=== PATIENT | female | born 1995 | race Caucasian/White ===

== ENCOUNTER 2016-07-31 13:10 | Inpatient (IN) | payer OTHER ==
[2016-07-31 15:13] VITALS: BMI 33.6
--- NOTE | 2016-07-31 16:56 | HP ---
COWS - Scale Resting Pulse: 0= [place] 80 or Below Sweatin=Flushed/Facial Moisture Restless Observation: 1= Difficult to Sit Still Pupil Size: 1= Pupils >than Normal Bone or Joint Aches: 2= Severe Diffuse Aches Runny Nose/ Eye Tearin= Runny Nose/Eyes GI Upset > 30mins: 1= Stomach Cramp Tremor Observation: 1= Tremor [place], Not Seen Yawning Observation: 0= None Anxiety or Irritability: 2=Irritable/Anxious Goose Flesh Skin: 0=Smooth Skin COWS Score: 12 Admission ROS BHS - HPI Chief Complaint: i n eed help to stop using percocet and cannabis Allergies/Adverse Reactions: Allergies Allergy/AdvReac Type Severity Reaction Status Date / Time No Known Allergies Allergy Verified 07/31/16 15:23 History of Present Illness: 21 y/o f pt with h/o percocet and cannabis seeking detox. Exam Limitations: No Limitations - Ebola screening Have you traveled outside of the country in the last 21 days: No Have you had contact with anyone from an Ebola affected area: No Have you been sick,other than usual withdrawal symptoms: No Do you have a fever: No - Review of Systems Constitutional: Night Sweats, Changes in sleep EENT: reports: Tearing Respiratory: reports: No Symptoms reported Cardiac: reports: No Symptoms Reported GI: reports: Nausea, Vomiting, Abdominal cramping : reports: No Symptoms Reported Musculoskeletal: reports: Back Pain, Muscle Pain Integumentary: reports: No Symptoms Reported Neuro: reports: Headache Endocrine: reports: No Symptoms Reported Hematology: reports: No Symptoms Reported Psychiatric: reports: Depressed Other Systems: Reviewed and Negative Patient History - Patient Medical History Hx Anemia: Yes Hx Asthma: No Hx Chronic Obstructive Pulmonary Disease (COPD): No Hx Cancer: No Hx Cardiac Disorders: No Hx Congestive Heart Failure: No Hx Hypertension: No Hx Hypercholesterolemia: No Hx Pacemaker: No HX Cerebrovascular Accident: No Hx Seizures: No Hx Dementia: No Hx Diabetes: No Hx Gastrointestinal Disorders: No Hx Liver Disease: No Hx Genitourinary Disorders: No Hx Sexually Transmitted Disorders: No Hx Renal Disease (ESRD): No Hx Thyroid Disease: No Hx Human Immunodeficiency Virus (HIV): No Hx Hepatitis C: No Hx Depression: Yes Hx Suicide Attempt: Yes (tired to choke herself with a belt x 2 ) Hx Bipolar Disorder: No Hx Schizophrenia: No - Patient Surgical History Past Surgical History: Yes Hx Abdominal Surgery: Yes (ovarian cyst-2015) Hx Section: Yes (x 2) - PPD History Previous Implant?: Yes Documented Results: Negative w/o proof Implanted On Prior [facility] Admission?: No PPD to be Administered?: Yes - Reproductive History Patient is a Female of Child Bearing Age (11 -55 yrs old): Yes Last Menstrual Period: 07/27/16 Patient : No - Smoking Cessation Smoking history: Current every day smoker Have you smoked in the past 12 months: No Aproximately how many cigarettes per day: 6 Cigars Per Day: 0 Hx Chewing Tobacco Use: No Initiated information on smoking cessation: Yes 'Breaking Loose' booklet given: 07/31/16 - Substance & Tx. History Hx Alcohol Use: No Hx Substance Use: Yes Substance Use Type: Marijuana, Opiates - Substances Abused Marijuana/Hashish Route: Smoking Frequency: Daily Amount used: $10 Age of first use: 8 Date of Last Use: 07/31/16 percocet Route: Oral Frequency: Daily Amount used: 5 pills Age of first use: 16 Date of Last Use: 07/31/16 Family Disease History - Family Disease History Family Disease History: Diabetes: Father, Mother Admission Physical Exam S - Vital Signs Vital Signs: Vital Signs - 24 hr 07/31/16 14:55 Temperature 97.2 F L Pulse Rate 75 Respiratory 20 Rate Blood Pressure 127/67 - Physical General Appearance: Yes: Appropriately Dressed, Obese, Irritable, Anxious HEENTM: Yes: EOMI, Hearing grossly Normal, Normocephalic, Normal Voice, [place], Rhinorrhea Respiratory: Yes: Chest Non-Tender, Lungs Clear, Normal Breath Sounds, No Respiratory Distress Neck: Yes: Supple, Trachea in good position Breast: Yes: Breast Exam Deferred Cardiology: Yes: Regular Rhythm, Regular Rate, S1, S2 Abdominal: Yes: Non Tender, Flat, Soft, Increased Bowel Sounds Genitourinary: Yes: Frequency Back: Yes: Decreased Range of Motion Musculoskeletal: Yes: Back pain Extremities: Yes: Tremors Neurological: Yes: housekeeping assistant II-XII NML intact, Fully Oriented, Alert, Motor Strength 5/5, Normal Response Integumentary: Yes: Moist Lymphatic: Yes: Within Normal Limits - Diagnostic (1) Opioid dependence Current Visit: Yes Status: Chronic Qualifiers: Substance use status: uncomplicated Qualified Code(s): F11.20 - Opioid dependence, uncomplicated (2) Obesity Current Visit: Yes Status: Chronic Qualifiers: Obesity severity: unspecified obesity severity (3) Cannabis abuse Current Visit: Yes Status: Chronic (4) Nicotine dependence Current Visit: Yes Status: Chronic Qualifiers: Nicotine product type: cigarettes Substance use status: uncomplicated Qualified Code(s): F17.210 - Nicotine dependence, cigarettes, uncomplicated Cleared for Admission S - Detox or Rehab [facility] Level of Care: Medically Managed Detox Regimen/Protocol: Methadone [facility] Breath Alcohol Content Breath Alcohol Content: 0 Urine Pregancy Test - Result Urine Test Results: Negative- NO Line Present Urine Drug Screen - Results Drug Screen Negative: No Urine Drug Screen Results: THC-Marijuana, CASA-Cocaine, OPI-Opiates, OXY- Oxycodone
[2016-07-31] MEDS ORDERED: MAGNESIUM CITRATE 300 ML BOTTLE PO PRN (17:10)
[2016-07-31] MEDS ORDERED: MENTHOL/PHENOL 1 EACH UD MM PRN (17:10)
[2016-07-31] MEDS ORDERED: LOPERAMIDE HCL 2 MG CAPSULE PO PRN (17:10)
[2016-07-31] MEDS ORDERED: NICOTINE POLACRILEX 2 MG GUM BC PRN (17:10)
[2016-07-31] MEDS ORDERED: MAGNESIUM HYDROX 2400MG/30ML ORAL SUSPENSION 30 ML CUP PO PRN (17:10)
[2016-07-31] MEDS ORDERED: MAG HYDROX/AL HYDROX/SIMETH 30 ML UNIT-DOSE CUP PO PRN (17:10)
[2016-07-31] MEDS ORDERED: guaiFENesin/D-METHORPHAN HB 10 ML UNIT-DOSE CUPS PO PRN (17:10)
[2016-07-31] MEDS ORDERED: P-EPHED 60MG/TRIPROLIDI 2.5MG TABLET PO PRN (17:10)
[2016-07-31] MEDS ORDERED: METHADONE HCL 10 MG TABLET (FOR DETOX USE ONLY) PO ONE ×2 (17:45→23:00)
[2016-07-31] MEDS: diazePAM 5 MG TABLET PO PRN ×2 (18:04→22:17)
[2016-07-31] MEDS: THIAMINE HCL 100 MG TABLET (FP) PO SCH (22:17)
[2016-07-31 23:23] LABS: URINE APPEARANCE CLOUDY; URINE BILIRUBIN NEGATIVE (NEGATIVE); URINE COLOR YELLOW; URINE GLUCOSE (UA) NEGATIVE (NEGATIVE); URINE KETONE NEGATIVE (NEGATIVE); URINE NITRITE NEGATIVE (NEGATIVE); URINE UROBILINOGEN NEGATIVE E.U./dl (0.2-1.0)
[2016-07-31 23:26] LABS: URINE BLOOD 3+ (NEGATIVE); URINE LEUK ESTERASE 1+ (NEGATIVE); URINE PROTEIN 1+ (NEGATIVE)
[2016-07-31 23:28] LABS: URINE MUCUS RARE; URINE RBC 9 /hpf (0-3); URINE WBC 17 /hpf (3-5)
[2016-08-01] MEDS: ACETAMINOPHEN 325 MG TABLET (FP) PO PRN ×2 (08:44→20:22)
[2016-08-01] MEDS ORDERED: ONDANSETRON *ODT* 4 MG TABLET SL PRN (08:47)
--- NOTE | 2016-08-01 09:05 | CONSULT ---
[facility] Psychiatric Consult - Data Date of interview: 08/01/16 Admission source: [facility] Identifying data: This is 21 years old female with nom psychiatric hosapitalization history intoxicated with: Opioids, Cannabis and Nicotine Substance Abuse History: - Smoking Cessation. Smoking history: Current every day smoker. Have you smoked in the past 12 months: No. Aproximately how many cigarettes per day: 6. Cigars Per Day: 0. Hx Chewing Tobacco Use: No. Initiated information on smoking cessation: Yes. 'Breaking Loose' booklet given : 07/31/16. - Substance & Tx. History. Hx Alcohol Use: No. Hx Substance Use: Yes. Substance Use Type: Marijuana, Opiates. - Substances Abused. Marijuana/Hashish. Route: Smoking. Frequency: Daily. Amount used: $10. Age of first use: 8. Date of Last Use: 07/31/16. percocet. Route: Oral. Frequency: Daily. Amount used: 5 pills. Age of first use: 16. Date of Last Use: Medical History: Obesity Psychiatric History: Patient reports history of de[ression, reprots no medications takijng prior to admsosion Physical/Sexual Abuse/Trauma History: Denies Additional Comment: Observation. Detox Unit Care Protocol Mental Status Exam - Mental Status Exam Alert and Oriented to: Person Cognitive Function: Fair Patient Appearance: Unkempt Mood: Apprehensive Affect: Mood Congruent Patient Behavior: Cooperative Speech Pattern: Delayed Voice Loudness: Mildly Soft/Quiet Thought Process: Goal Oriented Thought Disorder: Being Controlled Hallucinations: Denies Suicidal Ideation: Denies Homicidal Ideation: Denies Insight/Judgement: Fair Sleep: Difficulty falling asleep Appetite: Weight gain Muscle strength/Tone: Normal Gait/Station: Normal Additional Comments: Observation. Detox Unit Care Protocol Psychiatric Findings - Problem List ([place] 1, 2,3) (1) Cannabis abuse Current Visit: Yes Status: Chronic (2) Nicotine dependence Current Visit: Yes Status: Chronic Qualifiers: Nicotine product type: cigarettes Substance use status: uncomplicated Qualified Code(s): F17.210 - Nicotine dependence, cigarettes, uncomplicated (3) Opioid dependence Current Visit: Yes Status: Chronic Qualifiers: Substance use status: uncomplicated Qualified Code(s): F11.20 - Opioid dependence, uncomplicated (4) Drug-induced mood disorder Current Visit: Yes Status: Suspected - Initial Treatment Plan Initial Treatment Plan: Observation. Detox Unit Care Protocol
[2016-08-01] MEDS ORDERED: METHADONE HCL 10 MG TABLET (FOR DETOX USE ONLY) PO ONE (10:00)
[2016-08-01 10:16] LABS: MCH 27.7 pg (25.7-33.7); MCHC 32.3 g/dl (32.0-36.0); MEAN PLT VOLUME 12.1 fl (7.5-11.1); PLATELET COUNT 179 K/MM3 (134-434); RDW 14.3 % (11.6-15.6); WHITE BLOOD COUNT 8.3 K/mm3 (4.0-10.0)
[2016-08-01] MEDS: diazePAM 5 MG TABLET PO PRN ×2 (10:26→22:21)
[2016-08-01] MEDS: hydrOXYzine PAMOATE 25 MG CAPSULE (FP) PO PRN (10:26)
[2016-08-01] MEDS: PRENATAL VITAMINS W/ FOLIC ACID TABLET (FP) PO SCH (10:26)
[2016-08-01] MEDS: NICOTINE 7 MG/24 HOURS TOPICAL PATCH TD SCH (10:27)
[2016-08-01 10:33] LABS: ALBUMIN 3.5 g/dl (3.4-5.0); ALK PHOS 80 U/L (45-117); ANION GAP 11 (8-16); BILIRUBIN,TOTAL 0.3 mg/dL (0.2-1.0); CALCIUM 8.5 mg/dL (8.5-10.1); CO2 25 mmol/L (21-32); CREATININE 0.7 mg/dL (0.55-1.02); GLUCOSE,RANDOM 94 mg/dL (74-106); SGOT/AST 14 U/L (15-37); SGPT/ALT 19 U/L (12-78); TOT PROT 6.4 g/dl (6.4-8.2)
--- NOTE | 2016-08-01 11:07 | PN ---
S CIWA - CIWA Score Nausea/Vomitin S COWS - Scale Resting Pulse: 0= [place] 80 or Below Sweatin=Flushed/Facial Moisture Restless Observation: 1= Difficult to Sit Still Pupil Size: 1= Pupils >than Normal Bone or Joint Aches: 1= Mild Discomfort Runny Nose/ Eye Tearin= Nasal Congestion GI Upset > 30mins: 1= Stomach Cramp Tremor Observation of Outstretched Hands: 1= Tremor [place], Not Seen Yawning Observation: 0= None Anxiety or Irritability: 1=Feels Anxious/Irritable Goose Flesh Skin: 0=Smooth Skin COWS Score: 9 S Progress Note (SOAP) Subjective: feeling better, but interrupted sleep, sweats Objective: 08/01/16 11:05 Vital Signs Temperature 98.1 F 08/01/16 06:00 Pulse Rate 87 08/01/16 10:43 Respiratory Rate 18 08/01/16 10:43 Blood Pressure 138/92 08/01/16 10:43 O2 Sat by Pulse Oximetry (%) Laboratory Tests 07/31/16 08/01/16 08/01/16 23:00 06:00 06:00 WBC 8.3 RBC 4.35 Hgb 12.1 Hct 37.4 MCV 86.0 MCHC 32.3 RDW 14.3 Plt Count 179 MPV 12.1 H Sodium 142 Potassium 4.0 Chloride 106 Carbon Dioxide 25 Anion Gap 11 BUN 10 Creatinine 0.7 Creat Clearance w eGFR > 60 Random Glucose 94 Calcium 8.5 Total Bilirubin 0.3 AST 14 L ALT 19 Alkaline Phosphatase 80 Total Protein 6.4 Albumin 3.5 Urine Color Yellow Urine Appearance Cloudy Urine pH 6.0 Urine Protein 1+ H Urine Glucose (UA) Negative Urine Ketones Negative Urine Blood 3+ H Urine Nitrite Negative Urine Bilirubin Negative Urine Urobilinogen Negative Ur Leukocyte Esterase 1+ H Urine RBC 9 Urine WBC 17 Ur Epithelial Cells Many Urine Mucus Rare pt aox3 in nad ambulating Assessment: 08/01/16 11:06 withdrawal sx's Plan: cont. detox increase fluids
[2016-08-01 12:25] LABS: HIV 1 & 2 AB NEGATIVE; HIV 1 AGp24 NEGATIVE
--- NOTE | 2016-08-01 13:21 | EKG ---
Test Reason : Blood Pressure : / mmHG Vent. Rate : 072 BPM Atrial Rate : 072 BPM P-R Int : 126 ms QRS Dur : 088 ms QT Int : 412 ms P-R-T Axes : 062 064 053 degrees QTc Int : 451 ms NORMAL SINUS RHYTHM WITH SINUS ARRHYTHMIA POSSIBLE LEFT ATRIAL ENLARGEMENT BORDERLINE ECG NO PREVIOUS ECGS AVAILABLE Confirmed by ISELA ORTIZ MD ([id number]) on 08/01/2016 1:21:23 PM Referred By: Confirmed By:ISELA ORTIZ MD
[2016-08-01] MEDS: THIAMINE HCL 100 MG TABLET (FP) PO SCH (22:18)
[2016-08-01] MEDS: diphenhydrAMINE HCL 50 MG CAPSULE PO PRN (22:21)
[2016-08-02] MEDS: diazePAM 5 MG TABLET PO PRN ×4 (03:23→22:09)
[2016-08-02] MEDS ORDERED: TRIMETHOBENZAMIDE HCL 200MG/2ML INJ IM PRN (08:42)
--- NOTE | 2016-08-02 09:25 | PN ---
S COWS - Scale Resting Pulse: 0= [place] 80 or Below Sweatin= Chills/Flushing Restless Observation: 3= Extraneous Movement Pupil Size: 1= Pupils >than Normal Bone or Joint Aches: 2= Severe Diffuse Aches Runny Nose/ Eye Tearin= Runny Nose/Eyes GI Upset > 30mins: 3= Vomiting/Diarrhea Tremor Observation of Outstretched Hands: 2= Slight Tremor Visible Yawning Observation: 1= 1-2x During Session Anxiety or Irritability: 2=Irritable/Anxious Goose Flesh Skin: 0=Smooth Skin COWS Score: 17 S Progress Note (SOAP) Subjective: ALERT,IRRITABLE,ANXIOUS,INTERRUPTED SLEEP,TREMOR,HEADACHE,PAIN IN THE BODY AND BACK Objective: 08/02/16 09:24 Vital Signs Temperature 97.7 F 08/02/16 06:50 Pulse Rate 63 08/02/16 06:50 Respiratory Rate 16 08/02/16 06:50 Blood Pressure 105/67 08/02/16 06:50 O2 Sat by Pulse Oximetry (%) Laboratory Last Values WBC 8.3 K/mm3 (4.0-10.0) 08/01/16 06:00 RBC 4.35 M/mm3 (3.60-5.2) 08/01/16 06:00 Hgb 12.1 GM/dL (10.7-15.3) 08/01/16 06:00 Hct 37.4 % (32.4-45.2) 08/01/16 06:00 MCV 86.0 fl (80-96) 08/01/16 06:00 MCHC 32.3 g/dl (32.0-36.0) 08/01/16 06:00 RDW 14.3 % (11.6-15.6) 08/01/16 06:00 Plt Count 179 K/MM3 (134-434) 08/01/16 06:00 MPV 12.1 fl (7.5-11.1) H 08/01/16 06:00 Sodium 142 mmol/L (136-145) 08/01/16 06:00 Potassium 4.0 mmol/L (3.5-5.1) 08/01/16 06:00 Chloride 106 mmol/L (98-107) 08/01/16 06:00 Carbon Dioxide 25 mmol/L (21-32) 08/01/16 06:00 Anion Gap 11 (8-16) 08/01/16 06:00 BUN 10 mg/dL (7-18) 08/01/16 06:00 Creatinine 0.7 mg/dL (0.55-1.02) 08/01/16 06:00 Creat Clearance w eGFR > 60 (>60) 08/01/16 06:00 Random Glucose 94 mg/dL (74-106) 08/01/16 06:00 Calcium 8.5 mg/dL (8.5-10.1) 08/01/16 06:00 Total Bilirubin 0.3 mg/dL (0.2-1.0) 08/01/16 06:00 AST 14 U/L (15-37) L 08/01/16 06:00 ALT 19 U/L (12-78) 08/01/16 06:00 Alkaline Phosphatase 80 U/L (45-117) 08/01/16 06:00 Total Protein 6.4 g/dl (6.4-8.2) 08/01/16 06:00 Albumin 3.5 g/dl (3.4-5.0) 08/01/16 06:00 Urine Color Yellow 07/31/16 23:00 Urine Appearance Cloudy 07/31/16 23:00 Urine pH 6.0 (5.0-8.0) 07/31/16 23:00 Ur Specific [place] 1.015 (1.005-1.025) 07/31/16 23:00 Urine Protein 1+ (NEGATIVE) H 07/31/16 23:00 Urine Glucose (UA) Negative (NEGATIVE) 07/31/16 23:00 Urine Ketones Negative (NEGATIVE) 07/31/16 23:00 Urine Blood 3+ (NEGATIVE) H 07/31/16 23:00 Urine Nitrite Negative (NEGATIVE) 07/31/16 23:00 Urine Bilirubin Negative (NEGATIVE) 07/31/16 23:00 Urine Urobilinogen Negative E.U./dl (0.2-1.0) 07/31/16 23:00 Ur Leukocyte Esterase 1+ (NEGATIVE) H 07/31/16 23:00 Urine RBC 9 /hpf (0-3) 07/31/16 23:00 Urine WBC 17 /hpf (3-5) 07/31/16 23:00 Ur Epithelial Cells Many /hpf (FEW) 07/31/16 23:00 Urine Mucus Rare 07/31/16 23:00 RPR Titer Nonreactive (NONREACTIVE) 08/01/16 06:00 HIV 1&2 Antibody Screen Negative 07/31/16 06:00 HIV P24 Antigen Negative 07/31/16 06:00 Assessment: 08/02/16 09:24 WITHDRAWAL SYMPTOM Plan: CONTINUE DETOX,REPEAT UA
[2016-08-02] MEDS ORDERED: METHADONE HCL 5 MG TABLET (FOR DETOX USE ONLY) PO ONE (10:00)
[2016-08-02] MEDS: PRENATAL VITAMINS W/ FOLIC ACID TABLET (FP) PO SCH (11:02)
[2016-08-02] MEDS: hydrOXYzine PAMOATE 25 MG CAPSULE (FP) PO PRN (11:03)
[2016-08-02] MEDS: LIDOCAINE 5% TOPICAL PATCH TP SCH (11:05)
[2016-08-02] MEDS: NICOTINE 7 MG/24 HOURS TOPICAL PATCH TD SCH (11:11)
--- NOTE | 2016-08-02 12:52 | EKG ---
Test Reason : Blood Pressure : / mmHG Vent. Rate : 065 BPM Atrial Rate : 065 BPM P-R Int : 136 ms QRS Dur : 080 ms QT Int : 428 ms P-R-T Axes : 053 053 042 degrees QTc Int : 445 ms POOR DATA QUALITY, INTERPRETATION MAY BE ADVERSELY AFFECTED SINUS RHYTHM WITH MARKED SINUS ARRHYTHMIA OTHERWISE NORMAL ECG WHEN COMPARED WITH ECG OF 31-JUL-2016 16:53, NO SIGNIFICANT CHANGE WAS FOUND Confirmed by ESTHER RIVERS, LISBET ([id number]) on 08/02/2016 12:52:17 PM Referred By: Confirmed By:LISBET SANTANA MD
[2016-08-02] MEDS: TRIMETHOBENZAMIDE HCL 300 MG CAPSULE PO PRN (14:56)
[2016-08-02] MEDS: ACETAMINOPHEN 325 MG TABLET (FP) PO PRN ×2 (14:57→21:00)
[2016-08-02] MEDS: THIAMINE HCL 100 MG TABLET (FP) PO SCH (22:07)
[2016-08-02] MEDS: CYCLOBENZAPRINE HCL 10 MG TABLET (FP) PO PRN (22:09)
[2016-08-02] MEDS: diphenhydrAMINE HCL 50 MG CAPSULE PO PRN (23:18)
[2016-08-03] MEDS: hydrOXYzine PAMOATE 25 MG CAPSULE (FP) PO PRN ×3 (03:04→18:25)
[2016-08-03] MEDS: IBUPROFEN 400 MG TABLET (FP) PO PRN ×2 (03:04→13:01)
[2016-08-03] MEDS ORDERED: METHADONE HCL 10 MG TABLET (FOR DETOX USE ONLY) PO ONE (10:00)
[2016-08-03] MEDS ORDERED: METHADONE HCL 5 MG TABLET (FOR DETOX USE ONLY) PO ONE (10:00)
--- NOTE | 2016-08-03 10:09 | PN ---
S Progress Note (SOAP) Subjective: ALERT,IRRITABLE,ANXIOUS,INTERRUPTED SLEEP,PAIN IN THE BODY Objective: 08/03/16 10:07 Laboratory Last Values WBC 8.3 K/mm3 (4.0-10.0) 08/01/16 06:00 RBC 4.35 M/mm3 (3.60-5.2) 08/01/16 06:00 Hgb 12.1 GM/dL (10.7-15.3) 08/01/16 06:00 Hct 37.4 % (32.4-45.2) 08/01/16 06:00 MCV 86.0 fl (80-96) 08/01/16 06:00 MCHC 32.3 g/dl (32.0-36.0) 08/01/16 06:00 RDW 14.3 % (11.6-15.6) 08/01/16 06:00 Plt Count 179 K/MM3 (134-434) 08/01/16 06:00 MPV 12.1 fl (7.5-11.1) H 08/01/16 06:00 Sodium 142 mmol/L (136-145) 08/01/16 06:00 Potassium 4.0 mmol/L (3.5-5.1) 08/01/16 06:00 Chloride 106 mmol/L (98-107) 08/01/16 06:00 Carbon Dioxide 25 mmol/L (21-32) 08/01/16 06:00 Anion Gap 11 (8-16) 08/01/16 06:00 BUN 10 mg/dL (7-18) 08/01/16 06:00 Creatinine 0.7 mg/dL (0.55-1.02) 08/01/16 06:00 Creat Clearance w eGFR > 60 (>60) 08/01/16 06:00 Random Glucose 94 mg/dL (74-106) 08/01/16 06:00 Calcium 8.5 mg/dL (8.5-10.1) 08/01/16 06:00 Total Bilirubin 0.3 mg/dL (0.2-1.0) 08/01/16 06:00 AST 14 U/L (15-37) L 08/01/16 06:00 ALT 19 U/L (12-78) 08/01/16 06:00 Alkaline Phosphatase 80 U/L (45-117) 08/01/16 06:00 Total Protein 6.4 g/dl (6.4-8.2) 08/01/16 06:00 Albumin 3.5 g/dl (3.4-5.0) 08/01/16 06:00 Urine Color Yellow 07/31/16 23:00 Urine Appearance Cloudy 07/31/16 23:00 Urine pH 6.0 (5.0-8.0) 07/31/16 23:00 Ur Specific [place] 1.015 (1.005-1.025) 07/31/16 23:00 Urine Protein 1+ (NEGATIVE) H 07/31/16 23:00 Urine Glucose (UA) Negative (NEGATIVE) 07/31/16 23:00 Urine Ketones Negative (NEGATIVE) 07/31/16 23:00 Urine Blood 3+ (NEGATIVE) H 07/31/16 23:00 Urine Nitrite Negative (NEGATIVE) 07/31/16 23:00 Urine Bilirubin Negative (NEGATIVE) 07/31/16 23:00 Urine Urobilinogen Negative E.U./dl (0.2-1.0) 07/31/16 23:00 Ur Leukocyte Esterase 1+ (NEGATIVE) H 07/31/16 23:00 Urine RBC 9 /hpf (0-3) 07/31/16 23:00 Urine WBC 17 /hpf (3-5) 07/31/16 23:00 Ur Epithelial Cells Many /hpf (FEW) 07/31/16 23:00 Urine Mucus Rare 07/31/16 23:00 RPR Titer Nonreactive (NONREACTIVE) 08/01/16 06:00 HIV 1&2 Antibody Screen Negative 07/31/16 06:00 HIV P24 Antigen Negative 07/31/16 06:00 Vital Signs Temperature 97.3 F L 08/03/16 06:00 Pulse Rate 59 L 08/03/16 06:00 Respiratory Rate 18 08/03/16 06:00 Blood Pressure 91/52 08/03/16 06:00 O2 Sat by Pulse Oximetry (%) Assessment: 08/03/16 10:08 LESS WITHDRAWAL SYMPTOM Plan: CONTINUE DETOX,MEDICATION ADJUSTED,DISCHARGE IN AM
[2016-08-03] MEDS: LIDOCAINE 5% TOPICAL PATCH TP SCH (10:20)
[2016-08-03] MEDS: TRIMETHOBENZAMIDE HCL 300 MG CAPSULE PO PRN (10:20)
[2016-08-03] MEDS: PRENATAL VITAMINS W/ FOLIC ACID TABLET (FP) PO SCH (10:20)
[2016-08-03] MEDS: CYCLOBENZAPRINE HCL 10 MG TABLET (FP) PO PRN ×2 (10:20→22:23)
[2016-08-03] MEDS: diazePAM 5 MG TABLET PO PRN (10:20)
[2016-08-03] MEDS: NICOTINE 7 MG/24 HOURS TOPICAL PATCH TD SCH (10:21)
[2016-08-03] MEDS ORDERED: cloNIDine HCL 0.1 MG TABLET PO ONE (19:47)
[2016-08-03] MEDS: THIAMINE HCL 100 MG TABLET (FP) PO SCH (22:23)
[2016-08-03] MEDS: diphenhydrAMINE HCL 50 MG CAPSULE PO PRN (22:24)
[2016-08-04] MEDS: hydrOXYzine PAMOATE 25 MG CAPSULE (FP) PO PRN ×2 (00:34→06:50)
[2016-08-04] MEDS: IBUPROFEN 400 MG TABLET (FP) PO PRN (00:34)
[2016-08-04] MEDS ORDERED: METHADONE HCL 5 MG TABLET (FOR DETOX USE ONLY) PO ONE (06:00)
[2016-08-04 06:55] VITALS: BP 111/66; PULSE 75; TEMP 98.1
--- NOTE | 2016-08-04 08:11 | PN ---
BHS Progress Note (SOAP) Subjective: ALERT,NO COMPLAINT Objective: 08/04/16 08:08 Vital Signs Temperature 98.1 F 08/04/16 06:55 Pulse Rate 75 08/04/16 06:55 Respiratory Rate 18 08/04/16 06:55 Blood Pressure 111/66 08/04/16 06:55 O2 Sat by Pulse Oximetry (%) Assessment: 08/04/16 08:08 DETOX COMPLETED Plan: DETOX,COMPLETED ,FOLLOW UP WITH AFTER CARE ARRANGEMENT
--- NOTE | 2016-08-04 08:19 | DS ---
[facility] Detox Discharge Summary Admission Date: 07/31/16 Discharge Date: 08/04/16 - History Present History: Cannabis Dependence, Opioid Dependence Pertinent Past History: NICOTINE DEPENDENCE DEPRESSION OBESITY - Physical Exam Results Vital Signs: Vital Signs Temperature 98.1 F 08/04/16 06:55 Pulse Rate 75 08/04/16 06:55 Respiratory Rate 18 08/04/16 06:55 Blood Pressure 111/66 08/04/16 06:55 O2 Sat by Pulse Oximetry (%) - Treatment Hospital Course: Detox Protocol Followed, Detoxed Safely, Responded well, Discharged Condition Good Patient has Accepted a Rehab Referral to: FOLLOW UP WITH AFTER CARE PROGRAM ARRANGEMENT - Medication Discharge Medications: Ambulatory Orders NK [No Known Home Medication] 07/31/16 - Diagnosis (1) Cannabis abuse Current Visit: Yes Status: Chronic (2) Nicotine dependence Current Visit: Yes Status: Chronic Qualifiers: Nicotine product type: cigarettes Substance use status: uncomplicated Qualified Code(s): F17.210 - Nicotine dependence, cigarettes, uncomplicated (3) Obesity Current Visit: Yes Status: Chronic Qualifiers: Obesity severity: unspecified obesity severity (4) Opioid dependence Current Visit: Yes Status: Chronic Qualifiers: Substance use status: uncomplicated Qualified Code(s): F11.20 - Opioid dependence, uncomplicated (5) Drug-induced mood disorder Current Visit: Yes Status: Suspected (6) Depression Current Visit: Yes Status: Acute - AMA Did Patient Leave Against Medical Advice: No
[2016-08-04] MEDS ORDERED: METHADONE HCL 10 MG TABLET (FOR DETOX USE ONLY) PO ONE (10:00)
[2016-08-05] MEDS ORDERED: METHADONE HCL 5 MG TABLET (FOR DETOX USE ONLY) PO ONE (06:00)
== END 2016-08-04 09:30 | disposition home or self-care (01) | DRG 773 ==
LOC: YASAS 13:10 → Y6N 16:22
PROVIDERS: ADMIT Internal Medicine Addiction Medicine; ATTEND Internal Medicine Addiction Medicine
PROC: HZ2ZZZZ Detoxification Services for Substance Abuse Treatment (ICD-10-PCS; principal; 2016-08-04)
DX: F11.20 Opioid dependence, uncomplicated (principal); F17.210 Nicotine dependence, cigarettes, uncomplicated; F12.10 Cannabis abuse, uncomplicated; F19.24 Other psychoactive substance dependence with psychoactive substance-induced mood disorder; F32.9 Major depressive disorder, single episode, unspecified; E66.09 Other obesity due to excess calories; Z68.33 Body mass index [BMI] 33.0-33.9, adult
CPT/HCPCS: 36415; 80053; 81003; 81015; 85027; 86593; 87389; 93005; 93010